=== PATIENT | female | born 1930 | race Caucasian/White ===

== ENCOUNTER → 2019-02-05 | Outpatient (CLI) | payer MEDICARE ==
[~2019-02-05] MED LIST: AMLODIPINE BESYL5 MG PO; ATENOLOL100 MG PO; CLONIDINE HCL0.1 MG PO; COUMADIN5 MG PO; ESIDRIX25 MG PO; LORAZEPAM0.5 MG PO
--- NOTE | 2019-02-05 13:53 | Diagnostic Imaging Report ---
EXAMINATION: MRI of the lumbar spine without contrast HISTORY: Low back pain radiating to the left lower extremity for the last 4 years with numbness COMPARISON: Lumbar spine MRI 03/30/2017 TECHNIQUE: Sagittal T1, T2, STIR; axial T2 and proton density. FINDINGS: It is assumed that there are 5 lumbar vertebrae. Curvature/Alignment: Dextroscoliosis with apex at L3 and mild distal left-sided compensatory curve. Left lateral spondylolisthesis at L2-L3. Right lateral anterolisthesis at L4-L5. Subtle thoracolumbar kyphosis. Vertebrae: No evidence of recent fracture, infection, or neoplasm. Unchanged moderate chronic compression fracture of the T12 vertebral body (decreased vertebral body height by approximately 40%) and chronic endplate degenerative changes from L1 to L5. Conus: Normal, terminating at L1 Cauda equina: Unremarkable. Lower thoracic: No canal or foraminal stenosis. Paraspinal soft tissues: Moderate paraspinal musculature atrophy. Partially visualized T2 hyperintense probable cyst in the right kidney. Degenerative changes: Decreased disc height and T2 signal intensity as well as symmetric/asymmetric disc bulges at all levels. L1-L2: Asymmetric to the right this portion of facet arthrosis. Moderate bilateral foraminal stenosis. No significant canal stenosis. L2-L3: Asymmetric to the left disc osteophyte and small right subarticular superiorly migrated 3 mm AP diameter disc extrusion which flattens the right ventral thecal sac, grossly unchanged to slightly more prominent. Bilateral facet arthrosis. Moderate left foraminal stenoses. L3-L4: Asymmetric to left disc portion prominent facet arthrosis. Moderate left foraminal stenoses. L4-L5: Asymmetric right disc osteophyte and facet arthrosis. Moderate right foraminal stenoses. Near complete resolution of previously seen Modic Type 1 endplate degenerative changes. L5-S1: Asymmetric right disc osteophyte and facet arthrosis. Tiny central disc protrusion. Mild right foraminal stenosis. IMPRESSION: 1. Moderate foraminal stenosis on the left at L2-L3 and L3-4 and on the right at L4-5 due to degenerative changes and scoliosis. 2. Persistent multilevel spondylosis without significant canal stenoses. 3. Unchanged moderate chronic compression fracture of the T12 vertebral body. Signed by: Dr. Geraldine Barrios M.D. on 02/05/2019 1:49 PM
== END ==
LOC: MRI 07:55
PROVIDERS: ATTEND Family Medicine
DX: M54.16 Radiculopathy, lumbar region (principal)
CPT/HCPCS: 72148

== ENCOUNTER → 2019-04-23 | Outpatient (CLI) | payer MEDICARE ==
[~2019-04-23] MED LIST changes: +DIATRIZOATE MEGL/DIATRIZOA SOD 30 ML BTL PO ONE
--- NOTE | 2019-04-23 12:10 | Diagnostic Imaging Report ---
EXAM: CT Abdomen and Pelvis WITHOUT intravenous contrast INDICATION: Abnormal weight loss COMPARISON: None. TECHNIQUE: Abdomen and pelvis were scanned utilizing a multidetector helical scanner from the lung base to the pubic symphysis without administration of IV contrast. Coronal and sagittal reformations were obtained. IV CONTRAST: None ORAL CONTRAST: Gastrografin COMPLICATIONS: None RADIATION DOSE: Total DLP: 237.4 mGy*cm Dose modulation, iterative reconstruction, and/or weight based adjustment of the mA/kV was utilized to reduce the radiation dose to as low as reasonably achievable. FINDINGS: LOWER THORAX: No focal lung base consolidation. Mild dependent subsegmental atelectasis. Mild cardiomegaly. Atherosclerotic calcifications of the coronary arteries. HEPATOBILIARY: No focal liver lesions. Small foci of air in the intrahepatic bile ducts and common bile duct. Decompressed gallbladder. SPLEEN: No splenomegaly. PANCREAS: No focal masses or ductal dilatation. ADRENALS: No adrenal nodules. KIDNEYS/URETERS: No hydronephrosis. Scattered nonobstructive 2 to 3 mm left renal calculi. No right renal calculi. Cortical irregularity and defect along the lateral aspect of the left kidney and at the superior right kidney. Approximately 1 cm hypoattenuating lesion at the lateral right kidney is indeterminate on this noncontrast enhanced study but likely represents a cyst. PELVIC ORGANS/BLADDER: Unremarkable. PERITONEUM / RETROPERITONEUM: No free air or fluid. LYMPH NODES: No lymphadenopathy. VESSELS: Heavy diffuse atherosclerotic calcifications of the abdominal aorta and major branches. GI TRACT: No distention or wall thickening. BONES AND SOFT TISSUES: Status post left total hip replacement. No acute osseous injury. Diffuse osteopenia. Significant degenerative changes of the lower lumbar spine. Age indeterminate compression fracture of T12. IMPRESSION: Foci of air in the intrahepatic and common bile duct. Recommend correlation with clinical history of recent biliary instrumentation. Gallbladder is decompressed. Multiple nonobstructive left renal calculi. No hydronephrosis. Cortical irregularities of both kidneys. Recommend correlation with prior history of partial nephrectomies. Age-indeterminate T12 compression fracture. Heavy diffuse atherosclerotic calcifications including of the coronary arteries. Signed by: Jason Jorge MD on 04/23/2019 12:07 PM
== END ==
LOC: CT 10:25
PROVIDERS: ATTEND Internal Medicine Hematology & Oncology
DX: C91.10 Chronic lymphocytic leukemia of B-cell type not having achieved remission (principal); R63.4 Abnormal weight loss
CPT/HCPCS: 74176

== ENCOUNTER → 2019-06-13 | Outpatient (CLI) | payer MEDICARE ==
[~2019-06-13] MED LIST changes: -DIATRIZOATE MEGL/DIATRIZOA SOD 30 ML BTL PO ONE
--- NOTE | 2019-06-13 08:39 | Diagnostic Imaging Report ---
Frontal radiograph of the left hip - 1 view HISTORY: Pain COMPARISON: None available. FINDINGS: Bones: No acute displaced fracture. Osseous alignment is within normal limits. Joints: Patient is status post left hip replacement with associated postsurgical change. The surgical hardware appears intact without evidence of failure or loosening. Soft tissues: Scattered vascular calcification. IMPRESSION: Patient is status post left hip replacement with associated postsurgical change. The surgical hardware appears intact without evidence of failure or loosening. Signed by: Dr. Jossue Chandler M.D. on 06/13/2019 8:36 AM
--- NOTE | 2019-06-13 11:56 | Diagnostic Imaging Report ---
EXAMINATION: MRI of the cervical spine without contrast HISTORY: Neck pain radiating to the bilateral shoulders and upper extremities with weakness. Cervical adenopathy. COMPARISON: None available TECHNIQUE: Sagittal T1, T2, STIR; axial T2, gradient echo. FINDINGS: Curvature: Mild increased cervical lordosis. Vertebrae: Diffuse fatty replacement of the vertebra related to osteopenia, with minimal chronic anterior wedging of the T2, T3 and T4 vertebral bodies. No evidence of neoplasm, infection, or recent fracture. Foramen magnum: No mass, Chiari malformation, or basilar invagination. Spinal Cord: Normal size and signal intensity. Soft Tissues: Unremarkable. Degenerative changes: C1-C2: Mild degenerative changes without stenoses C2-C3: Catheter processes and minimal disc bulge. No significant stenoses. C3-C4: Small disc osteophyte formation, bilateral uncovertebral and facet arthrosis. No significant foraminal stenosis. Mild canal narrowing. Minimal retrolisthesis. C4-C5: Uncovertebral and mainly facet arthroses. Moderate bilateral foraminal stenoses. C5-C6: Uncovertebral and facet processes without significant canal or foraminal stenoses C6-C7: Minimal disc bulge, uncovertebral and facet arthrosis. Mild left foraminal narrowing. C7-T1: Unremarkable. IMPRESSION: 1. Minimal degenerative retrolisthesis at C3-C4. 2. Diffuse osteopenia with mild chronic anterior wedging of the T2, T3 and T4 vertebral bodies. 3. Mild degenerative canal narrowing at C3-C4. 4. Moderate degenerative bilateral foraminal stenosis at C4-C5 and mild on the left at C6-7. Signed by: Dr. Geraldine Barrios M.D. on 06/13/2019 10:57 AM
== END ==
LOC: MRI 07:25
PROVIDERS: ATTEND Physical Medicine & Rehabilitation
DX: M54.2 Cervicalgia (principal); M25.552 Pain in left hip
CPT/HCPCS: 72141

== ENCOUNTER → 2019-09-04 | Outpatient (CLI) | payer MEDICARE ==
--- NOTE | 2019-09-04 17:22 | Diagnostic Imaging Report ---
EXAM: CERVICAL 3 VIEWS DATE: 09/04/2019 3:33 PM INDICATION: Cervicalgia COMPARISON: MRI cervical spine from 06/13/2019 FINDINGS: There is no evidence for acute fracture or dislocation. Vertebral body heights are maintained. Bony mineralization is diffusely decreased. No focal lytic or blastic abnormality is identified. The dens as well as lateral masses are intact. There are multilevel degenerative changes of the cervical spine, more prominent within the lower cervical spine and better evaluated on the prior MRI examination. The prevertebral soft tissues are unremarkable. The visualized lung apices are clear. IMPRESSION: No acute radiographic abnormality identified within the cervical spine. Multilevel degenerative changes grossly similar to and better evaluated on the prior MRI examination from 06/13/2019. Signed by: Dr. Jaime Maciel MD on 09/04/2019 5:19 PM
== END ==
LOC: RAD 15:14
PROVIDERS: ATTEND Internal Medicine Rheumatology
DX: M54.2 Cervicalgia (principal)
CPT/HCPCS: 72040

== ENCOUNTER → 2020-02-15 | Outpatient (CLI) | payer MEDICARE ==
--- NOTE | 2020-02-15 15:19 | Diagnostic Imaging Report ---
EXAMINATION: SP LUMBAR, COMPLETE MIN 4VW INDICATION: Lumbar spondylosis COMPARISON: Abdomen and pelvis CT of 04/23/2019 FINDINGS: No acute fracture. Old T12 compression fracture appears unchanged compared to the CT of 04/23/2019. Minimal retrolisthesis at L2-3. Alignment is otherwise anatomic. Oblique images demonstrate no definite spondylolysis. Mild dextroconvex curvature of the lumbar spine. Prominent multilevel degenerative changes with disc space narrowing, osteophyte formation, and facet arthropathy. Diffuse atherosclerotic arterial calcifications. Nonobstructive bowel gas pattern. No free air. IMPRESSION: No acute osseous injury. Unchanged old T12 compression fracture. Minimal retrolisthesis at L2-3. Prominent multilevel degenerative changes. Signed by: Jason Jorge MD on 02/15/2020 3:15 PM
--- NOTE | 2020-02-15 15:20 | Diagnostic Imaging Report ---
EXAMINATION: HIP LEFT 2-3 VW (+/- PELVIS) INDICATION: Left hip pain COMPARISON: None FINDINGS: Status post left total hip replacement. Alignment appears near-anatomic. Hardware is intact. No acute fracture or dislocation. Diffuse atherosclerotic arterial calcifications. IMPRESSION: No acute osseous injury. Left total hip replacement. Signed by: Jason Jorge MD on 02/15/2020 3:16 PM
== END ==
LOC: RAD 14:29
PROVIDERS: ATTEND Family Medicine
DX: S32.000D Wedge compression fracture of unspecified lumbar vertebra, subsequent encounter for fracture with routine healing (principal); M47.16 Other spondylosis with myelopathy, lumbar region; N18.9 Chronic kidney disease, unspecified; M35.3 Polymyalgia rheumatica; M25.552 Pain in left hip
CPT/HCPCS: 72110

== ENCOUNTER → 2020-10-21 | Outpatient (CLI) | payer MEDICARE | LOC: MRI 08:23 | PROVIDERS: ATTEND Family Medicine | DX: M47.16 Other spondylosis with myelopathy, lumbar region (principal) | CPT/HCPCS: 72148 ==

== ENCOUNTER → 2021-04-17 | Outpatient (CLI) | payer MEDICARE | LOC: MRI 10:29 | PROVIDERS: ATTEND Family Medicine | DX: M25.551 Pain in right hip (principal) ==

== ENCOUNTER → 2021-06-10 | Outpatient (CLI) | payer MEDICARE ==
[~2021-06-10] MED LIST changes: +BETAMETHASONE DISODIUM PHOS 6 MG/ML VIAL ONE; +IOPAMIDOL 300 MG/ML 15ML VIAL IT ONE; +LIDOCAINE HCL 1% LOCAL INJ 20 ML VIAL ONE; +LORAZEPAM 0.5 MG TAB ONE
[2021-06-10 08:08] LABS: HEMOGLOBIN 10.4 g/dL (12.0-16.0)
[2021-06-10 08:26] LABS: INR 1.04; PROTHROMBIN TIME 13.8 seconds (11.9-14.5)
[2021-06-10 08:27] LABS: PARTIAL THROMBOPLASTIN TIME 27.9 seconds (23.8-35.5)
== END ==
LOC: DX 07:46
PROVIDERS: ATTEND Family Medicine
DX: M24.151 Other articular cartilage disorders, right hip (principal); M54.30 Sciatica, unspecified side
CPT/HCPCS: 36415; 62323; 77002; 85014; 85049; 85610; 85730; J0720; J2001; Q9967

== ENCOUNTER → 2021-07-17 | Outpatient (CLI) | payer MEDICARE ==
[~2021-07-17] MED LIST changes: -BETAMETHASONE DISODIUM PHOS 6 MG/ML VIAL ONE; -IOPAMIDOL 300 MG/ML 15ML VIAL IT ONE; -LIDOCAINE HCL 1% LOCAL INJ 20 ML VIAL ONE; -LORAZEPAM 0.5 MG TAB ONE
== END ==
LOC: MRI 08:39
PROVIDERS: ATTEND Family Medicine
DX: M54.32 Sciatica, left side (principal)
CPT/HCPCS: 72148

== ENCOUNTER → 2021-08-04 | Outpatient (CLI) | payer MEDICARE | LOC: RAD 12:44 | PROVIDERS: ATTEND Family Medicine | DX: M16.0 Bilateral primary osteoarthritis of hip (principal) | CPT/HCPCS: 73522 ==

== ENCOUNTER → 2021-09-17 | Day surgery (SDC) | payer MEDICARE ==
[2021-09-14 11:01] LABS: BASOPHILS % 0.3 % (0.0-1.0); EOSINOPHILS # (AUTO) 0.2 (0.0-0.4); EOSINOPHILS % 1.7 % (0.0-6.0); HEMATOCRIT 35.2 % (34.2-44.1); HEMOGLOBIN 11.1 g/dL (12.0-16.0); LYMPHOCYTES % 62.6 % (18.0-39.1); MEAN CORPUSCULAR HEMOGLOBIN 28.5 pg (28-32); MEAN CORPUSCULAR HGB CONC 31.5 g/dL (31-35); MEAN CORPUSCULAR VOLUME 90.5 fL (81-99); MONOCYTES # (AUTO) 1.3 (0.2-0.8); MONOCYTES % 13.3 % (4.4-11.3); NEUTROPHILS # (AUTO) 2.1 (2.1-6.9); PLATELET COUNT 119 x10e3/uL (140-360); RED BLOOD COUNT 3.89 x10e6/uL (3.6-5.1); RED CELL DISTRIBUTION WIDTH 14.2 % (11.7-14.4)
[2021-09-14 11:34] LABS: EOSINOPHILS % (MANUAL) 2 % (0-7); LYMPHOCYTES % (MANUAL) 58 % (19-48); MONOCYTES % (MANUAL) 12 % (3.4-9.0); NEUTROPHILS % (MANUAL) 28 % (40-74); PLATELET ESTIMATE SLIGHTLY DECREASED; PLATELET MORPHOLOGY COMMENT NORMAL; RBC MORPHOLOGY COMMENT NORMAL
[~2021-09-17] MED LIST changes: +CALCIUM PO; +ELIQUIS5 MG PO; +FENTANYL CITRATE/PF 100MCG/2 ML INJ ONE; +FUROSEMIDE40 MG PO; +GLUCAGON FOR INJ 1 MG VIAL ONE; +HYDROCODON-ACE1 EA12 PO; +HYOSCYAMINE SULFATE 0.5 MG/ML INJ ONE; +LIDOCAINE HCL 2% LOCAL INJ 5 ML SDV VIAL INJ ONE; +LYRICA25 MG PO; +POTASSIUM CHLO10 ME1 PO; +PROPOFOL IV EMULSION 10 MG/ML 20 ML VIAL ONE; +VITAMIN C500 MG PO
[2021-09-17 09:39] VITALS: BP 122/69
== END | disposition home or self-care (01) ==
LOC: OR 06:47
PROVIDERS: ATTEND Internal Medicine Gastroenterology
DX: K59.00 Constipation, unspecified (principal); D12.0 Benign neoplasm of cecum; D12.2 Benign neoplasm of ascending colon; K31.7 Polyp of stomach and duodenum; K29.70 Gastritis, unspecified, without bleeding; K20.90 Esophagitis, unspecified without bleeding; K63.89 Other specified diseases of intestine; K64.8 Other hemorrhoids; R19.8 Other specified symptoms and signs involving the digestive system and abdomen; R63.4 Abnormal weight loss; I10 Essential (primary) hypertension; I48.91 Unspecified atrial fibrillation; Z88.6 Allergy status to analgesic agent; Z01.810 Encounter for preprocedural cardiovascular examination; Z01.812 Encounter for preprocedural laboratory examination; Z20.822 Contact with and (suspected) exposure to COVID-19; Z79.02 Long term (current) use of antithrombotics/antiplatelets; Z79.899 Other long term (current) drug therapy
CPT/HCPCS: 36415; 43239; 45385; 85025; 93005; C9113; J1610; J1980; J2001; J2704; J3010; U0002; 45378; 45384

== ENCOUNTER → 2022-05-28 | Outpatient (CLI) | payer MEDICARE ==
[~2022-05-28] VITALS: Ht 165.1 cm; Wt 51.7 kg
[~2022-05-28] MED LIST changes: -FENTANYL CITRATE/PF 100MCG/2 ML INJ ONE; -GLUCAGON FOR INJ 1 MG VIAL ONE; -HYOSCYAMINE SULFATE 0.5 MG/ML INJ ONE; -LIDOCAINE HCL 2% LOCAL INJ 5 ML SDV VIAL INJ ONE; -PROPOFOL IV EMULSION 10 MG/ML 20 ML VIAL ONE
[2022-05-28 08:38] LABS: BASOPHILS % 0.2 % (0.0-1.0); EOSINOPHILS # (AUTO) 0.1 (0.0-0.4); EOSINOPHILS % 0.5 % (0.0-6.0); HEMATOCRIT 43.3 % (34.2-44.1); LYMPHOCYTES # (AUTO) 16.4 (1.0-3.2); LYMPHOCYTES % 73.6 % (18.0-39.1); MEAN CORPUSCULAR HEMOGLOBIN 30.2 pg (28-32); MEAN CORPUSCULAR HGB CONC 32.3 g/dL (31-35); MEAN CORPUSCULAR VOLUME 93.3 fL (81-99); MONOCYTES # (AUTO) 0.3 (0.2-0.8); MONOCYTES % 1.5 % (4.4-11.3); NEUTROPHILS # (AUTO) 5.3 (2.1-6.9); NEUTROPHILS % 23.8 % (38.7-80.0); PLATELET COUNT 142 x10e3/uL (140-360); RED BLOOD COUNT 4.64 x10e6/uL (3.6-5.1); RED CELL DISTRIBUTION WIDTH 13.5 % (11.7-14.4)
[2022-05-28 08:50] LABS: ALANINE AMINOTRANSFERASE 27 IU/L (0-55); ALBUMIN 3.7 g/dL (3.5-5.0); ALBUMIN/GLOBULIN RATIO 1.5 (0.8-2.0); ALKALINE PHOSPHATASE 51 IU/L (40-150); ANION GAP 14.8 mmol/L (8-16); BLOOD UREA NITROGEN 32 mg/dL (7-26); BUN/CREATININE RATIO 27 (6-25); CALCIUM 9.1 mg/dL (8.4-10.2); CARBON DIOXIDE 27 mmol/L (22-29); CHLORIDE 103 mmol/L (98-107); GLUCOSE 195 mg/dL (74-118); POTASSIUM 3.8 mmol/L (3.5-5.1); SODIUM 141 mmol/L (136-145)
[2022-05-28 09:08] LABS: CHOL/HDL RATIO 3.1 (3.0-3.6); CHOLESTEROL 217 MD/DL (0-199); HDL CHOLESTEROL 70 MG/DL (40-60); LDL CHOLESTEROL 135 MG/DL (60-130); TRIGLYCERIDES 59 MG/DL (0-149)
[2022-05-28 09:30] LABS: EOSINOPHILS % (MANUAL) 2 % (0-7); LYMPHOCYTES % (MANUAL) 73 % (19-48); MONOCYTES % (MANUAL) 2 % (3.4-9.0); NEUTROPHILS % (MANUAL) 22 % (40-74); NUCLEATED RED BLOOD CELLS 0; PLATELET ESTIMATE ADEQUATE; PLATELET MORPHOLOGY COMMENT NORMAL; RBC MORPHOLOGY COMMENT NORMAL
== END | disposition home or self-care (01) ==
LOC: LAB 08:00 → EDSTATUS 06-01 13:00
PROVIDERS: ATTEND Internal Medicine Interventional Cardiology
DX: I25.10 Atherosclerotic heart disease of native coronary artery without angina pectoris (principal); Z20.822 Contact with and (suspected) exposure to COVID-19; Z53.9 Procedure and treatment not carried out, unspecified reason
CPT/HCPCS: 0223U; 36415; 80053; 80061; 83880; 85025

== ENCOUNTER → 2022-06-15 | Outpatient (CLI) | payer MEDICARE | LOC: MRI 07:06 | PROVIDERS: ATTEND Family Medicine | DX: M54.42 Lumbago with sciatica, left side (principal); M47.16 Other spondylosis with myelopathy, lumbar region; W19.XXXA Unspecified fall, initial encounter | CPT/HCPCS: 72148 ==